=== PATIENT | female | born 1940 | race Two or more races ===

== ENCOUNTER 2019-05-01 08:24 | Emergency (ER) | payer MEDICARE, MEDICAID ==
[~2019-05-01] VITALS: Ht 149.9 cm; Wt 50.0 kg
[~2019-05-01 08:24] MED LIST: ALEVE220 M1 PO; CRESTOR5 MG PO; EQ ASPIRIN325 MG PO; LISINOPRIL20 MG OR; LOPRESSOR50 MG OR; MEDDOSEPAK OR; NAPROSYN500 MG PO; NORVASC10 MG OR
[2019-05-01] MEDS ORDERED: PERCOCET 5/321 COMBO PO (10:13)
[2019-05-01 10:24] VITALS: BP 126/77
[2019-05-01] MEDS ORDERED: PERCOCET 5/325M1 TAB PO (14:00)
== END 2019-05-01 10:36 | disposition home or self-care (01) ==
LOC: ED 08:24
PROC: 2W3CX1Z Immobilization of Right Lower Arm using Splint (ICD-10-PCS; principal; 2019-05-01)
DX: S52.531A Colles' fracture of right radius, initial encounter for closed fracture (principal); S80.11XA Contusion of right lower leg, initial encounter; S00.83XA Contusion of other part of head, initial encounter; W11.XXXA Fall on and from ladder, initial encounter; Y92.009 Unspecified place in unspecified non-institutional (private) residence as the place of occurrence of the external cause

== ENCOUNTER 2019-10-28 11:37 | Inpatient (IN) | payer MEDICARE ==
[~2019-10-28] VITALS: Ht 149.9 cm; Wt 48.4 kg
[~2019-10-28 11:37] MED LIST changes: +PERCOCET 5/321 COMBO PO; +PERCOCET 5/325M1 TAB PO
--- NOTE | 2019-10-28 12:00 | NUR ---
PT AMB TO ROOM IN NO DISTRESS
[2019-10-28] MEDS ORDERED: ARNUITY EL50 MCG/ACT (12:12)
[2019-10-28] MEDS ORDERED: PROAIR DIG108 MCG/AC IN (12:13)
[2019-10-28] MEDS ORDERED: ASPIRIN ADULT325 MG PO (12:14)
[2019-10-28] MEDS ORDERED: FLOVENT HF220 MCG/AC IN (12:14)
[2019-10-28] MEDS ORDERED: LISINOP/HCTZ1 TA1 PO (12:15)
[2019-10-28] MEDS ORDERED: AMLODIPINE BESY10 MG PO (12:15)
[2019-10-28] MEDS ORDERED: METOPROLOL SUCC50 MG PO (12:16)
[2019-10-28] MEDS ORDERED: ROSUVASTATIN CA10 MG PO (12:17)
[2019-10-28] MEDS ORDERED: HEARTBURN RELIE20 MG PO (12:17)
[2019-10-28] MEDS ORDERED: SINGULAIR10 MG PO (12:18)
[2019-10-28 12:38] LABS: HEMATOCRIT 41.9 % (37.0-47.0); HEMOGLOBIN 13.8 g/dl (12.0-16.0); IMMATURE GRANULOCYTES 0.5 % (0.0-5.0); MEAN CELL VOLUME 87.1 fL CALC (80.0-100.0); MEAN CORPUSCULAR HGB 28.7 pG CALC (26.0-32.0); MEAN CORPUSCULAR HGB CONC 32.9 g/L CALC (32.0-36.0); NEUT# 14.45 thou/uL (2.00-7.15); RED BLOOD COUNT 4.81 mill/uL (4.20-5.60); RED CELL DISTRI WIDTH 12.7 % (11.5-15.5)
--- NOTE | 2019-10-28 12:50 | NUR ---
PT RESTING ON STRETCHER; COUGH NOTED; PT NOFIED OF POC AND NEED FOR SPUTUM CULTURE; O2 NC APPLIED PER ABG RESULTS; PT TOLERATING WELL; VSS; CALL LIGHT WITHIN REACH; WILL CONTINUE TO MONITOR
[2019-10-28 12:58] LABS: ALBUMIN 4.6 g/dL (3.2-5.0); ALKALINE PHOSPHATASE 107 u/l (38-126); ANION GAP 16 (6-22 (CALC)); BUN 19 mg/dL (8-23); BUN/CREATININE RATIO 26 (12-20 (CALC)); CARBON DIOXIDE 26 mmol/l (22-30); CHLORIDE 97 mmol/l (95-108); CREATININE 0.7 mg/dL (0.5-1.0); GFR > 60 ML/MIN (>=60 (CALC)); GFR FOR AFR.AMER. > 60 ML/MIN (>=60 (CALC)); POTASSIUM 3.2 mmol/l (3.5-5.1); SGOT/AST 30 u/l (9-36); SODIUM 136 mmol/l (137-146); TOTAL PROTEIN 8.7 g/dL (6.3-8.2)
[2019-10-28 12:59] LABS: BILIRUBIN, TOTAL 0.6 mg/dL (0.0-1.4)
--- NOTE | 2019-10-28 13:30 | NUR ---
PT RESTING ON STRETCHER; NO S/S OF DISTRESS NOTED; VSS; DENIES ANY NEEDS AT THIS TIME; CALL LIGHT WITHIN REACH; WILL CONTINUE TO MONITOR
[2019-10-28 17:10] VITALS: BP 120/54
--- NOTE | 2019-10-28 17:10 | NUR ---
PT HAD COME VIA STRETCHER BY JANET. PT AMBULATED PT SCALE. ASSESSMENT DONE. TELE IN PLACE. PT IS A&O X3. PT DENIES PAIN AT THIS TIME. 20 LAC THAT APPEARS HEALTHY. PT IN ROOM. 02 2L VIA VT. SAFETY PRECAUTIONS REINFORCED AND CALL LIGHT IN REACH.
[2019-10-28 20:05] VITALS: BP 114/51
--- NOTE | 2019-10-28 20:15 | NUR ---
ASSESSMENT COMPLETED. DENIES NEEDS/PAIN. PO FLUIDS OFFERED. IV SITE PATENT AND SL. UPDATED ON POC. O2 INFUSING PER NC PER ORDER. ENCOURAGD TO CALL FOR ANY NEEDS. SPECIMEN CUP PROVIDED AND INSTRUCTED OF NEED FOR SPUTUM AND VERBALIZES UNDERSTANDING.
--- NOTE | 2019-10-28 21:00 | NUR ---
SCHED MEDS GIVEN. PT. PROVIDED SPUTUM SAMPLE WILL SEND TO LAB. PO FLUIDS OFFERED. DENIES NEEDS. CALL LIGHT IS IN REACH.
[2019-10-28 23:46] VITALS: BP 109/53
--- NOTE | 2019-10-29 00:10 | NUR ---
PT. AMBULATING FROM THE BATHROOM BACK TO BED. VOICES NO CONCERNS. PROVIDED AND EDUCATED ON INCENTIVE SPIROMETER. PT. PULLING 500 AND GOAL SET TO 750. RE-PLACED MEASURING DEVICE IN TOILET AND INSTRUCTED PT. ON NEEDS FOR ACCURATE INTAKE AND OUTPUT AND VERBALIZES UNDERSTANDING. ENCOURAGED TO CALL FOR ANY NEEDS. CALL LIGHT IS IN REACH. JUICE PROVIDED.
--- NOTE | 2019-10-29 02:25 | NUR ---
RESTING IN BED WITH EYES CLOSED; RESP. EVEN AND UNLABORED. CALL LIGHT IS IN REACH.
[2019-10-29 03:55] VITALS: BP 115/58
[2019-10-29 05:23] LABS: HEMATOCRIT 41.5 % (37.0-47.0); HEMOGLOBIN 13.7 g/dl (12.0-16.0); IMMATURE GRANULOCYTES 0.8 % (0.0-5.0); MEAN CELL VOLUME 87.4 fL CALC (80.0-100.0); MEAN CORPUSCULAR HGB 28.8 pG CALC (26.0-32.0); NEUT# 10.38 thou/uL (2.00-7.15); RED BLOOD COUNT 4.75 mill/uL (4.20-5.60); RED CELL DISTRI WIDTH 12.4 % (11.5-15.5)
[2019-10-29 05:42] LABS: ANION GAP 16 (6-22 (CALC)); BUN 24 mg/dL (8-23); BUN/CREATININE RATIO 33 (12-20 (CALC)); CARBON DIOXIDE 28 mmol/l (22-30); CHLORIDE 97 mmol/l (95-108); CREATININE 0.7 mg/dL (0.5-1.0); GFR > 60 ML/MIN (>=60 (CALC)); GFR FOR AFR.AMER. > 60 ML/MIN (>=60 (CALC)); POTASSIUM 3.3 mmol/l (3.5-5.1); SODIUM 138 mmol/l (137-146)
--- NOTE | 2019-10-29 05:47 | NUR ---
SNACK PROVIDED PER PT'S REQUEST. FRESH WATER GIVEN. URINE EMPTIED. CALL LIGHT IS IN REACH.
[2019-10-29 08:00] VITALS: BP 120/61
[2019-10-29] MEDS ORDERED: SINGULAIR10 MG PO (10:58)
[2019-10-29 12:38] LABS: CHOLESTEROL HDL RATIO 3.1 (<4.4 (CALC)); MAGNESIUM 2.5 mg/dL (1.6-2.3)
[2019-10-29 16:36] VITALS: BP 108/62
--- NOTE | 2019-10-29 17:26 | NUR ---
PATIENT IN AFIB. AIRPLANE PILOT CROP DUSTING AWARE AND MEDICATIONS ORDERED. ASYMPTOMATIC AT THIS TIME. NEW ORDERS FOR IV ANTIBIOTICS. PATIENT ADVISED OF NEW MEDICATIONS ORDERED AND SIDE EFFECTS. DENIES PAIN. WILL CONTINUE TO MONITOR.
[2019-10-29 19:08] VITALS: BP 98/60
--- NOTE | 2019-10-29 19:10 | NUR ---
CALLED AND SPOKE WITH ER ELASTIC ASSEMBLER AND NOTIFIED THEM TO NOTIFY FLOOR IF PT'S HR SUSTAINS 120'S AND/OR FOR RHYTHYM CHANGE PER MD'S REQUEST. VERBALIZES UNDERSTANDING. HR AT THIS TIME AFIB 112 AND B/P MANUALLY 98/60, NOTIFIED BRENDA MILLS OF THIS AND NEW ORDERS RECEIVED.
--- NOTE | 2019-10-29 19:40 | NUR ---
250ML BOLUS STARTED PER ORDER AND THEN MAINTENANCE FLUIDS TO START AT 100MLS/HR. ASSESSMENT COMPLETED. WILL REASSESS B/P AFTER BOLUS. ENCOURAGED USE OF INCENTIVE SPIROMETER AND O2 IN PLACE. ENCOURAGED TO CALL FOR ANY NEEDS. CALL LIGHT IS IN REACH. WILL CONTINUE TO MONITOR.
[2019-10-29 21:02] VITALS: BP 101/68
--- NOTE | 2019-10-29 21:02 | NUR ---
REASSESSED B/P AND NOW 101/68 AND HR 102; WILL HOLD LOPRESSOR AND REASSESS.
--- NOTE | 2019-10-29 22:14 | NUR ---
REASSESSED B/P AND NOW 103/70 AND HR 82; HELD LOPRESSOR PER ORDER. PT. DENIES NEEDS. CALL LIGHT IS IN REACH.
[2019-10-29 23:33] VITALS: BP 98/67
--- NOTE | 2019-10-29 23:33 | NUR ---
PT. RESTING IN BED WITH NO DISTRESS NOTED; DENIES NEEDS/PAIN. VSS. ENCOURAGED TO CALL FOR ANY NEEDS. CALL LIGHT IS IN REACH.
[2019-10-30] VITALS (8 sets, daily range): BP systolic 98–134; BP diastolic 42–67
--- NOTE | 2019-10-30 02:02 | NUR ---
[phone] RECEIVED PHONE CALL FROM [facility] AND REPORTS THAT HR IS 120-130'S. PT. UP IN THE ROOM AMBULATING FROM THE BATHROOM BACK TO BED. PT. HAS 02 OFF, RE-APPLIED O2 AT THIS TIME AND RT CALLED FOR ISHAN TXTre SPOKE WITH [employer] AND NOTIFIED HER TO CALL BACK THIS TRACK LAYING EQUIPMENT OPERATOR IF HR SUSTAINS.
--- NOTE | 2019-10-30 02:56 | NUR ---
PT. C/O OTERO AND MEDICATED WITH ONE TIME DOSE OF TYLENOL AND SNACK PROVIDED. DENIES FURTHER NEEDS.
--- NOTE | 2019-10-30 04:05 | NUR ---
PER ER DONOR RELATIONS OFFICER PT. APPEARS TO HAVE CONVERTED TO SR WITH TRIGEMENY. CALLED RT FOR EKG.
--- NOTE | 2019-10-30 04:16 | NUR ---
EKG COMPLETED AND PER RT. PT. NOW SR WITH MULTIPLE PAC'S.
--- NOTE | 2019-10-30 06:10 | NUR ---
PT. SITTING UP IN BED WITH EYES CLOSED; O2 INFUSING PER NC PER ORDER. NO DISTRESS NOTED. CALL LIGHT IS IN REACH.
--- NOTE | 2019-10-30 08:05 | NUR ---
ASSESSMENT IS COMPLETED: IV SITE IS FREE FROM REDNESS OR EDEMA. HR IS REG,PULSES ARE STRONG X4,ABD IS SOFT WITH ACTIVE BS. BREATH SOUNDS ARE CLEAR,BILATERALLY, NO C/O SOB. TELE MONITOR IN PLACE CONTINU ETO OBSERVE AND MONITOR.
--- NOTE | 2019-10-30 09:23 | NUR ---
called office regarding this pt. spoke to mehdi gave information on pt was told she will notify the doctor regarding this consultation.
--- NOTE | 2019-10-30 11:45 | NUR ---
DID THE WALK TEST WITH OUT O2 IS 94% WHILE WALKING DROPPED TO 86% REPLACED ON O2 92%
[2019-10-30 11:56] LABS: ANION GAP 15 (6-22 (CALC)); BUN 26 mg/dL (8-23); BUN/CREATININE RATIO 40 (12-20 (CALC)); CARBON DIOXIDE 23 mmol/l (22-30); CHLORIDE 107 mmol/l (95-108); CREATININE 0.7 mg/dL (0.5-1.0); GFR > 60 ML/MIN (>=60 (CALC)); GFR FOR AFR.AMER. > 60 ML/MIN (>=60 (CALC)); SODIUM 141 mmol/l (137-146)
[2019-10-30 11:57] LABS: POTASSIUM 4.1 mmol/l (3.5-5.1)
--- NOTE | 2019-10-30 12:30 | NUR ---
PT IS RELAXING IN BED WITH NO DISTRESS NOTED. IV SITE IS FREE FROM REDNESS OR EDEMA. FAMILY IN THE ROOM. CONTINUE TO OSBERVE AND MONITOR.
[2019-10-30] MEDS ORDERED: FLECAINIDE50 MG PO (13:41)
--- NOTE | 2019-10-30 16:30 | NUR ---
PT IS RELAXING IN BED WITH NO DISTRESS NOTED. IV SITE BECAME PUFFY AND A NEW ONE PLACED BY Marin MENCHACA RN IN RAC 22. CONITNUE TO OSBERVE AND MONITOR. FAMILY REMAINS IN THE ROOM.
--- NOTE | 2019-10-30 20:50 | NUR ---
PT MEDICATED ORDERS PROVIDE AND ASSESSMENT COMPLETED AT THIS TIME. PT REPORTS FEELING SOMEWHAT BETTER. UPPER LUNG WHEEZE AUSCULTATED. PT ASKING FOR OJ/PROVIDED. DENIES ANY OTHER NEEDS AT THIS TIME. CALL LIGHT W/IN REACH AND PT ENCOURAGED TO CALL NEEDS ARISE.
--- NOTE | 2019-10-30 21:49 | NUR ---
Patient refused a bath at this time 21:50. Patient is wanting to wash up in the morning.
--- NOTE | 2019-10-31 00:10 | NUR ---
PT CALLED TO REQUEST RESTROOM DOOR BE CLOSED. DENIES ANY OTHER NEEDS AT THIS TIME. NO S/O DISTRESS NOTED. CALL LIGHT IS W/IN REACH.
[2019-10-31 03:42] VITALS: BP 130/68
--- NOTE | 2019-10-31 03:46 | NUR ---
IV SITE IN LAC REMOVED/SITE WAS SL AND APPEARED REDDENED. PT DENIES PAIN AT SITE. PT C/O "UPSET STOMACH." EMESIS BAG PROVIDED, SHE ASKED FOR CRACKERS AND SPRITE/PROVIDED AT THIS TIME. DENIES ANY OTHER NEEDS. AIDE IS IN W/PT OBTAINING DAILY WEIGHT.
[2019-10-31 04:57] LABS: HEMATOCRIT 37.3 % (37.0-47.0); IMMATURE GRANULOCYTES 4.1 % (0.0-5.0); MEAN CELL VOLUME 92.1 fL CALC (80.0-100.0); MEAN CORPUSCULAR HGB 28.6 pG CALC (26.0-32.0); MEAN CORPUSCULAR HGB CONC 31.1 g/L CALC (32.0-36.0); NEUT# 10.3 thou/uL (2.00-7.15); RED BLOOD COUNT 4.05 mill/uL (4.20-5.60); RED CELL DISTRI WIDTH 13.1 % (11.5-15.5)
[2019-10-31 05:08] LABS: HEMOGLOBIN 11.6 g/dl (12.0-16.0)
[2019-10-31 05:13] LABS: ANION GAP 14 (6-22 (CALC)); BUN 21 mg/dL (8-23); BUN/CREATININE RATIO 33 (12-20 (CALC)); CARBON DIOXIDE 22 mmol/l (22-30); CHLORIDE 109 mmol/l (95-108); CREATININE 0.6 mg/dL (0.5-1.0); GFR > 60 ML/MIN (>=60 (CALC)); GFR FOR AFR.AMER. > 60 ML/MIN (>=60 (CALC)); POTASSIUM 4.1 mmol/l (3.5-5.1); SODIUM 141 mmol/l (137-146)
--- NOTE | 2019-10-31 05:17 | NUR ---
patient was asked if she wanted to wash up at this time 0342. patient refused.
--- NOTE | 2019-10-31 07:00 | NUR ---
REPORT FROM ZURI SIERRA. PT RESTING IN BED WITH EYES CLOSED. WAKES EASILY. DENIES ANY PAIN OR DISCOMFORT. NO APPARENT DISTRESS NOTED. WOOD TREATING INSPECTOR IN PLACE. IVF INFUSING WITHOUT DIFFICULTY. O2 @ 2L/M VIA NC. DISCUSSED POC. PT VERBALIZED UNDERSTANDING. PT REQUESTING SHOWER AFTER BREAKFAST. CALL LIGHT WITHIN REACH. WILL CONTINUE TO MONITOR.
[2019-10-31 08:04] VITALS: BP 134/73
--- NOTE | 2019-10-31 09:04 | NUR ---
PT UP TO SHOWER, DISCONNECTED FROM IV FLUIDS AND TELEMETRY AT THIS TIME.
[2019-10-31 10:50] VITALS: BP 104/58
[2019-10-31] MEDS ORDERED: ELIQUIS5 MG PO (11:41)
[2019-10-31] MEDS ORDERED: PREDNISONE10 MG PO (11:43)
[2019-10-31] MEDS ORDERED: LEVAQUIN750 MG PO (11:44)
[2019-10-31] MEDS ORDERED: ASPIRIN ADULT L81 M2 PO (11:49)
--- NOTE | 2019-10-31 12:32 | NUR ---
PT RESTING IN BED, ENVIRONMENTAL SERVICES TECHNICIAN DISCUSSED DISCHARGE PLAN. [facility] DELIVERED TO ROOM. WILL CONTINUE TO MONITOR.
--- NOTE | 2019-10-31 14:58 | NUR ---
Discharge instructions given. Patient verbalizes understanding of same. Discharged in stable condition via Wheelchair to Home with family. All belongings sent with pt.
--- NOTE | 2019-10-31 15:01 | NUR ---
IV site discontinued, cath intact. No edema , no redness, voices no discomfort.
== END 2019-10-31 14:58 | disposition home or self-care (01) | DRG 193 ==
LOC: ED 11:37 → ED-I 14:21 → ED 15:17 → MS2 15:18
PROVIDERS: Nurse Practitioner Family; ADMIT Internal Medicine; ATTEND Internal Medicine
DX: J18.9 Pneumonia, unspecified organism (principal); J96.01 Acute respiratory failure with hypoxia; J45.901 Unspecified asthma with (acute) exacerbation; I10 Essential (primary) hypertension; I48.0 Paroxysmal atrial fibrillation; I45.10 Unspecified right bundle-branch block; E78.5 Hyperlipidemia, unspecified; I25.10 Atherosclerotic heart disease of native coronary artery without angina pectoris; E87.6 Hypokalemia; Z95.1 Presence of aortocoronary bypass graft; Z87.891 Personal history of nicotine dependence
CPT/HCPCS: G0378; J0282; J1650

== ENCOUNTER 2021-02-13 17:09 | Emergency (ER) | payer MEDICARE, MEDICAID ==
[~2021-02-13] VITALS: Ht 149.9 cm; Wt 70.0 kg
[~2021-02-13 17:09] MED LIST changes: +AMLODIPINE BESY10 MG PO; +ARNUITY EL50 MCG/ACT; +ASPIRIN ADULT L81 M2 PO; +ASPIRIN ADULT325 MG PO; +ELIQUIS5 MG PO; +FLECAINIDE50 MG PO; +FLONASE AL50 MCG/ACT IN; +FLOVENT HF220 MCG/AC IN; +HEARTBURN RELIE20 MG PO; +LEVAQUIN750 MG PO; +LISINOP/HCTZ1 TA1 PO; +METOPROLOL SUCC50 MG PO; +PREDNISONE10 MG PO; +PROAIR DIG108 MCG/AC IN; +ROSUVASTATIN CA10 MG PO; +SINGULAIR10 MG PO; +TRIAMCINOLONE A0.12 EX
[2021-02-13] MEDS ORDERED: ULTRAM50 MG PO (18:44)
[2021-02-13 18:57] VITALS: BP 159/81
== END 2021-02-13 18:57 | disposition home or self-care (01) ==
LOC: ED 17:09
DX: S63.501A Unspecified sprain of right wrist, initial encounter (principal); S63.91XA Sprain of unspecified part of right wrist and hand, initial encounter; I10 Essential (primary) hypertension; J45.909 Unspecified asthma, uncomplicated; W54.1XXA Struck by dog, initial encounter; Y93.K1 Activity, walking an animal; Z95.1 Presence of aortocoronary bypass graft

== ENCOUNTER 2021-03-22 | Emergency (ER) | payer MEDICARE, MEDICAID ==
[~2021-03-22] MED LIST changes: +ULTRAM50 MG PO
[2021-03-22] MEDS ORDERED: MONTELUKAST SOD10 MG PO (20:53)
[2021-03-22] MEDS ORDERED: LOPRESSOR 550 MG/TAB PO (20:53)
[2021-03-22] MEDS ORDERED: AMLODIPINE BESYL5 MG PO (20:53)
[2021-03-22] MEDS ORDERED: ROSUVASTATIN CA10 MG PO (20:53)
== END 2021-03-22 21:00 | disposition home or self-care (01) ==
PROC: 3E1B78Z Irrigation of Ear using Irrigating Substance, Via Natural or Artificial Opening (ICD-10-PCS; principal; 2021-03-22)
DX: H61.21 Impacted cerumen, right ear (principal); I10 Essential (primary) hypertension; J45.909 Unspecified asthma, uncomplicated; I48.91 Unspecified atrial fibrillation; Z95.1 Presence of aortocoronary bypass graft

== ENCOUNTER 2021-04-27 09:14 | Inpatient (IN) | payer MEDICARE, MEDICAID ==
[~2021-04-27] VITALS: Ht 149.9 cm; Wt 56.0 kg
[~2021-04-27 09:14] MED LIST changes: +AMLODIPINE BESYL5 MG PO; +LOPRESSOR 550 MG/TAB PO; +MONTELUKAST SOD10 MG PO
--- NOTE | 2021-04-27 09:18 | NUR ---
to room for triage
[2021-04-27] MEDS ORDERED: FLECAINIDE50 MG PO (09:32)
[2021-04-27] MEDS ORDERED: MONTELUKAST SOD10 MG PO (09:32)
[2021-04-27] MEDS ORDERED: ELIQUIS5 MG PO (09:33)
[2021-04-27] MEDS ORDERED: BUPROPION HCL150 MG PO (09:33)
[2021-04-27] MEDS ORDERED: FLOVENT HF220 MCG/AC (09:34)
[2021-04-27 10:29] LABS: HEMATOCRIT 43.8 % (37.0-47.0); HEMOGLOBIN 13.9 g/dl (12.0-16.0); IMMATURE GRANULOCYTES 0.7 % (0.0-5.0); MEAN CELL VOLUME 90.9 fL CALC (80.0-100.0); MEAN CORPUSCULAR HGB 28.8 pG CALC (26.0-32.0); MEAN CORPUSCULAR HGB CONC 31.7 g/dL CAL (32.0-36.0); NEUT# 18.33 thou/uL (2.00-7.15); RED BLOOD COUNT 4.82 mill/uL (4.20-5.60); RED CELL DISTRI WIDTH 13.2 % (11.5-15.5)
[2021-04-27 10:53] LABS: ALBUMIN 4.1 g/dL (3.2-5.0); ALKALINE PHOSPHATASE 113 u/l (38-126); ANION GAP 15 (6-22 (CALC)); BUN 14 mg/dL (8-23); BUN/CREATININE RATIO 23 (12-20 (CALC)); CARBON DIOXIDE 24 mmol/l (22-30); CHLORIDE 99 mmol/l (95-108); CREATININE 0.6 mg/dL (0.5-1.0); GFR > 60 ML/MIN (>=60 (CALC)); GFR FOR AFR.AMER. > 60 ML/MIN (>=60 (CALC)); POTASSIUM 3.5 mmol/l (3.5-5.1); SGOT/AST 25 u/l (9-36); SODIUM 134 mmol/l (137-146); TOTAL PROTEIN 8.2 g/dL (6.3-8.2)
[2021-04-27 10:55] LABS: BILIRUBIN, TOTAL 0.8 mg/dL (0.0-1.4)
[2021-04-27 11:05] LABS: MYOGLOBIN 33 ng/mL (0 - 62)
[2021-04-27] MEDS ORDERED: ASPIRIN81 MG PO (12:30)
[2021-04-27 14:30] VITALS: BP 154/73
--- NOTE | 2021-04-27 15:03 | NUR ---
PT ARRIVES TO ROOM 277,SEEN ALERT AND ORIENTED X 3, ACCOMPANIED BY HER DAUGHTER REDDY AND ANIL RN. PT IS ALERT AND ORIENTED X 3. LUNGS ARE CLEAR, PLACED ON 2 LPM NC. PT WITH OCCASIONAL COUGH, CLEARS WITHOUT DIFFICULTY.
[2021-04-27 19:50] VITALS: BP 163/77
--- NOTE | 2021-04-27 20:00 | NUR ---
RECEIVED REPORT FROM NURSE LAND PATIENT RESTING IN BED, WATCHING TV, ASKING ABOUT HER HOME MEDICATIONS THAT SHE TAKES AT HOME, WILL NOTIFY AGRONOMY INSTRUCTOR MD, WITH SALINE LOCK ON RAC G20 PATENT FLUSHES WELL, LBM 04/25, HOOKED TO O2 2 2LPM, PRODUCTIVE COUGH YELLOW IN COLOR THICK SECRETION, DIMINISHED LUNG SOUNDS, DENIES PAIN AT THIS TIME, BREATHING SHALLOW, UNLABORED, CALL LIGHT AT REACH.
--- NOTE | 2021-04-27 20:05 | NUR ---
DR DANG MADE AWARE ABOUT PATIENT REQUEST TO RESTART HOME MEDICATION.
[2021-04-28] VITALS: BP 149/76
--- NOTE | 2021-04-28 00:03 | NUR ---
PATIENT C/O THAT SHE IS SHORT OF BREATH, POX AT 96% ON ROOM AIR, RT CALLED FOR BREATHING TREATMENT
[2021-04-28 04:00] VITALS: BP 147/70
--- NOTE | 2021-04-28 04:16 | NUR ---
PATIENT AWAKE AT THIS TIME, ASSISTED TO THE BATHROOM, ASSISTED BACK IN BED, URINE SPECIMEN COLLECTED, PATIENT REQUESTED PRUNE JUICE LAST BM 04/25, REFUSED TO TAKE LAXATIVE AT THIS TIME, CALL LIGHT AT REACH.
[2021-04-28 05:46] LABS: URINE BILIRUBIN - DIPSTICK SMALL (NEGATIVE); URINE BLOOD DIPSTICK SMALL (NEGATIVE); URINE COLOR YELLOW; URINE GLUCOSE - DIPSTICK NEGATIVE (NEGATIVE); URINE KETONE 40 mg/dL (NEGATIVE); URINE NITRITE - DIPSTICK NEGATIVE (Negative); URINE PROTEIN - DIPSTICK 30 mg/dL (NEG-TRACE); URINE SPECIFIC GRAVITY >=1.030; URINE UROBILINOGEN - DIPSTICK >=8.0 E.U./dL (0.2)
[2021-04-28 05:47] LABS: URINE BACTERIA FEW hpf; URINE EPITHELIAL CELLS FEW EPI/hpf (0-FEW); URINE LEUK ESTERASE NEGATIVE (NEGATIVE); URINE MUCUS FEW hpf (NONE-FEW)
--- NOTE | 2021-04-28 07:00 | NUR ---
PT REPORT RECEIVED FROM NIGHT NURSESHAWN
[2021-04-28 07:39] VITALS: BP 133/68
--- NOTE | 2021-04-28 08:00 | NUR ---
PT WAS FOUND RESTING IN BED IN SEMI-FOWLERS POSITION;PT IS A&OX3;VS AND ASSESSMENT WERE COMPLETED;PT HAS NO REPORTS OF PAIN AT THIS TIME;HEART SOUNDS ARE REGULAR IN RATE AND RHYTHM;TELE IS IN PLACE;LUNG SOUNDS ARE DIMINISHED IN ALL LOBES;RESPIRATIONS ARE EVEN AND UNLABORED ON O2@2L VIA NC;NON-PRODUCTIVE COUGH NOTED;#20G IV IN RAC IS SL, PATENT AND FREE OF COMPLICATIONS AT THIS TIME;PT HAS MAURA HOSE ON AT THIS TIME;SAFETY PRECAUTIONS IN PLACE;CALL LIGHT WITHIN REACH;BED IN LOWEST POSITION;PT ENCOURAGED TO CALL WITH ANY NEEDS OR CONCERNS;WILL CONTINUE TO MONITOR.
[2021-04-28 11:10] VITALS: BP 111/65
--- NOTE | 2021-04-28 12:00 | NUR ---
PT WAS FOUND SITTING UP IN BED EATING LUNCH;PT IS REPORTING NO PAIN AT THIS TIME;TELE IS IN PLACE;O2@2L VIA NC IS IN PLACE;SAFETY PRECAUTIONS IN PLACE;CALL LIGHT WITHIN REACH;WILL CONTINUE TO MONITOR.
[2021-04-28 15:00] VITALS: BP 145/78
--- NOTE | 2021-04-28 16:00 | NUR ---
PT WAS FOUND RELAXING IN BED WATCHING TV;PT DAUGHTER JUST LEFT AFTER VISITING;PT HAS NO REPORTS OF PAIN AT THIS TIME;TELE IS IN PLACE;#20G IV IN RAC IS SL, PATENT AND APPEARS FREE OF COMPLICATIONS AT THIS TIME;SAFETY PRECAUTIONS IN PLACE;CALL LIGHT WITHIN REACH;BED IN LOWEST POSITION;WILL CONTINUE TO MONITOR.
[2021-04-28 19:03] VITALS: BP 144/75
--- NOTE | 2021-04-28 19:04 | NUR ---
REPORT FROM ARTURO SIERRA. ASSUMED PT CARE.
--- NOTE | 2021-04-28 19:18 | NUR ---
PT NOTED SITTING UP IN BED WATCHING TV. ALERT AND ORIENTED. NO APPARENT DISTRESS NOTED. RESPIRATIONS EVEN AND UNLABORED. O2 @ 2L/M VIA NC. PT DENIES ANY PAIN OR DISCOMFORT. NO CURRENT WANTS OR NEEDS VOICED AT THIS TIME. DISCUSSED POC. PT VERBALIZED UNDERSTANDING. IV SITE APPEARS HEALTHY. PLANT WORKER IN PLACE. CALL LIGHT WITHIN REACH. WILL CONTINUE TO MONITOR.
--- NOTE | 2021-04-28 23:27 | NUR ---
PT RESTING IN BED WITH EYES CLOSED. NO APPARENT DISTRESS NOTED. RESPIRATIONS EVEN AND UNLABORED. 02 @ 2L/M VIA NC. CALL LIGHT WITHIN REACH. WILL CONTINUE TO MONITOR.
[2021-04-29] VITALS (16 sets, daily range): BP systolic 110–151; BP diastolic 43–79
--- NOTE | 2021-04-29 00:21 | NUR ---
FAMILY MEMBER CALLED WITH CONCERNS PT CALLING THEM STATING THINGS SUCH THE POLICE ARE HERE AND SHE IS BEING ROBBED. UPON ENTERING ROOM PT ALERT AND ORIENTED X2. PT ABLE TO STATE NAME AND MONTH AND WHERE SHE IS. REORIENTED TO TIME OF NIGHT AND SITUATION. ENCOURAGED PT TO KEEP OXYGEN ON AND TO GET SOME REST. PT VERBALIZED UNDERSTANDING. CALL LIGHT WITHIN REACH. WILL CONTINUE TO MONITOR.
--- NOTE | 2021-04-29 02:15 | NUR ---
PT FOUND WALKING DOWN DENNIS. PT CONTINUES TO BE ALERT AND ORIENTED WITH CONFUSION AND HAVING HALLUCINATIONS. PT REORIENTED TO TIME AND SITUATION. PUPILS EQUAL AND REACTIVE. SAUSAGE COOKER STRONG. ASSISTED PT BACK INTO BED. O2 PLACED BACK ON PT. EDUCATION PROVIDED ON SAFETY. BED ALARM SET AT THIS TIME. CALL LIGHT WITHIN REACH. WILL CONTINUE TO MONITOR.
--- NOTE | 2021-04-29 03:55 | NUR ---
ER NOTIFIED PT HR SUSTAINING IN 140S. RHYTHM CHANGE NOTED.
--- NOTE | 2021-04-29 03:57 | NUR ---
EKG OBTAINED BY RT.
--- NOTE | 2021-04-29 04:18 | NUR ---
PT HR SUSTAINING IN 130-140S. NOTIFIED AGRICULTURAL SCIENCE PROFESSOR PHYSICIAN DR DANG. ORDERS RECEIVED AT THIS TIME. GIVE CARDIZEM 5MG IVP X1 WAIT 5 MINUTES IF HR DOES NOT SLOW DOWN BELOW 120 GIVE ANOTHER DOSE CARDIZEM 5MG IVP IF NO IMPROVEMENT TRANSFER TO ICU. SWEATBAND FLANGER NOTIFIED.
--- NOTE | 2021-04-29 04:30 | NUR ---
PHARMACY CALLED [facility] DOWN PER PHARMACY MEDICATION WILL HAVE TO BE OVERROAD TO ADMINISTER THEY DO NOT HAVE ACCESS EITHER. MEDICAL RECORDS CUSTODIAN NOTIFIED.
--- NOTE | 2021-04-29 04:46 | NUR ---
DILTIAZEM 5MG IP PUSH GIVEN @ 04.45
--- NOTE | 2021-04-29 04:51 | NUR ---
SECOND DOSE OF DILTIAZEM 5MG IV PUSH GIVEN HEART RATE STAYED IN THE 120'S-130'S
--- NOTE | 2021-04-29 05:10 | NUR ---
TO ICU VIA BED. ALERT. SPEECH CLEAR BUT SOMEWHAT CONFUSED. KNOWS SHE IS IN HOSPITAL AND HEART TOO FAST BUT WANTS DAUGHTER CALLED BECAUSE FAMILY FLYING AWAY.... TO ICU HEART RATE 120'S AND NOT RESPONSIVE TO CARDIZEM IVP. PT DENIES CHEST PAIN, PALPATIONS OR FEELING ANY DIFFERENTLY. OXYGENT AT 2L VIA N/C. NO COUGH OR RESP DISTRESS NOTED NOTED
--- NOTE | 2021-04-29 05:19 | NUR ---
NOTIFIED DAUGHTER PT WAS TRANFERED TO ICU.
--- NOTE | 2021-04-29 05:27 | NUR ---
PCXR DONE AT THIS TIME
--- NOTE | 2021-04-29 06:19 | NUR ---
RESTING BEFORE BREAKFAST COMES. DENIES PAIN OR DISTRESS. ON MONITOR AND HEART RATE 120'S
--- NOTE | 2021-04-29 06:47 | NUR ---
AM DOSE OF LOPRESSOR GIVEN HEART RATE CONTINUES TO CLIMB. SITTING ON SIDE OF BED. TO BSC WITH STANDBY ASSIST-TOLERATEDWELL
--- NOTE | 2021-04-29 07:16 | NUR ---
PATIENT RECIEVED FROM NIGHT NURSE.
--- NOTE | 2021-04-29 08:00 | NUR ---
PATIENT ASSESSED, ALERT WITH CONFUSION. VITALS ARE STABLE. HEART RATE IN 80'S.
[2021-04-29 08:27] LABS: HEMATOCRIT 42.2 % (37.0-47.0); HEMOGLOBIN 13.4 g/dl (12.0-16.0); IMMATURE GRANULOCYTES 0.5 % (0.0-5.0); MEAN CELL VOLUME 91.1 fL CALC (80.0-100.0); MEAN CORPUSCULAR HGB 28.9 pG CALC (26.0-32.0); MEAN CORPUSCULAR HGB CONC 31.8 g/dL CAL (32.0-36.0); NEUT# 12.38 thou/uL (2.00-7.15); RED BLOOD COUNT 4.63 mill/uL (4.20-5.60); RED CELL DISTRI WIDTH 13.2 % (11.5-15.5)
--- NOTE | 2021-04-29 08:30 | NUR ---
SPOKE TO REDDY THE DAUGHTER AND ALSO JOSE HER SETP DAUGHTER. BOTH HAD THE CODE. GAVE BOTH DAUGHTERS AN UPDATE.
[2021-04-29 08:39] LABS: ANION GAP 12 (6-22 (CALC)); BUN 7 mg/dL (8-23); BUN/CREATININE RATIO 15 (12-20 (CALC)); CARBON DIOXIDE 27 mmol/l (22-30); CHLORIDE 101 mmol/l (95-108); CREATININE 0.5 mg/dL (0.5-1.0); GFR > 60 ML/MIN (>=60 (CALC)); GFR FOR AFR.AMER. > 60 ML/MIN (>=60 (CALC)); POTASSIUM 3.8 mmol/l (3.5-5.1); SODIUM 137 mmol/l (137-146)
--- NOTE | 2021-04-29 10:00 | NUR ---
PATIENT IS SITTING UP WATCHING TV.
--- NOTE | 2021-04-29 12:00 | NUR ---
PATIENT IS GETTING UP AND CALLING OUT FOR PEOPLE WHO ARE NOT HERE. REDIRECTED HER AND SHE IS BACK TO SITTING DOWN AND WATCHING TV FOR NOW.
--- NOTE | 2021-04-29 14:21 | NUR ---
PATIENT IS LAYING IN BED
--- NOTE | 2021-04-29 15:07 | NUR ---
CALLED FOR TRANSFER OVER TO [facility], NURSE STATED THAT THEY WILL CALL US BACK FOR A ROOM NUMBER.
--- NOTE | 2021-04-29 16:00 | NUR ---
PATIENT IS SITTING UP IN BED TRYING TO GET OUT OF BED. REMOVING HER CONNECTIONS FROM THE MONITOR.
--- NOTE | 2021-04-29 17:14 | NUR ---
PATIENT WILL REMAIN WITH US IN ICU. MEDSURG IS FULL ACCORDING TO THE MEDSURG NURSE.
--- NOTE | 2021-04-29 18:00 | NUR ---
PATIENT IS SITTING UP IN BED, UPSET ABOUT NOT BEING ABLE TO GO HOME. EDUCATION WAS GIVEN. SHE IS REFUSING TO EAT. IS DRINKING HER TEA.
--- NOTE | 2021-04-29 18:50 | NUR ---
REPORT RECEIVED FROM Mack LAKE RN, CARE OF PT ASSUMED AT THIS TIME.
--- NOTE | 2021-04-29 19:22 | NUR ---
Mahsa PARISI MERCHANDISING STOCK ASSOCIATE CALLS OUT FOR HELP, PT IS GRABBING ONTO MERCHANDISING STOCK ASSOCIATE TIGHTLY AND YELLING / ATTEMPTING TO PUSH HER. SHERRY MINAYA ANNOUNCED OVERHEAD. PT REDIRECTED BACK TO BED. PT IS AGITATED, YELLING THAT SHE IS BEING HELD PRISONER AND HER MOBILE PHONE HAS BEEN STOLEN. MOBILE PHONE IN BED WITH PT. PT'S ATTENTION DRAWN TO PHONE PT STATES "THEIR IT IS" GRABS PHONE AND BEGINS TO CALL FAMILY. PT STAYING IN BED WHILE ON PHONE WITH FAMILY. ACCUSES FAMILY OF ABANDONING HER.
--- NOTE | 2021-04-29 19:35 | NUR ---
PT'S AGITATION, CONFUSION AND PHYSICAL ATTACK ON EMPLOYEE REPORTED TO DR. CREWS. ORDERS FOR SEROQUEL AND PRN ATIVAN RECEIVED FOR AGITATION. ORDER FAXED TO PHARMACY.
--- NOTE | 2021-04-29 19:55 | NUR ---
CALLED AND SPOKE WITH PT'S DAUGHTER PAPA. UPDATE PROVIDED ON PT'S STATUS. DAUGHTER AWARE OF INCREASED CONFUSION. REPORTS PT CONTINUALLY CALLS AND IS AGITATED. DAUGHTER MADE AWARE OF PT'S INCREASED AGITATION IF PT'S IS SEPERATED FROM PHONE. DAUGHTER MADE AWARE CURRENT PLAN IS TO START ON SEROQUEL WITH ATIVAN PRN FOR AGITATION. DAUGHTER AGREEABLE.
--- NOTE | 2021-04-29 20:20 | NUR ---
PT CALMER. ASSISTED PT TO BATHROOM REQUESTED. PT BACK TO BED. AGREES TO TAKE PO MEDICATIONS AT THIS TIME. PO MEDICATIONS ADMINISTERED, SEE E-MAR. PHYSICAL ASSESMENT COMPLETE. SEE SHIFT ASSESMENT. PT DECLINES NEEDS WHEN ASKED. CALL SENIOR WITHIN REACH, AGREES TO CALL PRN.
--- NOTE | 2021-04-29 21:10 | NUR ---
PT JUMPS OUT OF BED AND ATTEMPTS TO RUN AWAY. GAIT UNBALANCED. PT GUIDED BACK TO BED. WILL SIT WITH PT AT BEDSIDE.
--- NOTE | 2021-04-29 21:20 | NUR ---
PT THROWS MOBILE PHONE AT WALL HARD. NO GROSS DAMAGE NOTED TO PHONE. PHONE PLACED ON BEDSIDE TABLE. PT DROWSY AND AWAKE.
--- NOTE | 2021-04-29 21:30 | NUR ---
PT APPEARS TO BE SLEEPING, RESTLESS AND YELLING OUT "NO TONY". NSR 80S ON MONITOR. SPO2 95%.
--- NOTE | 2021-04-29 21:40 | NUR ---
UPDATE ON PT'S STATUS PROVIDED TO PT'S DAUGHTER PAPA OVER TELEPHONE.
--- NOTE | 2021-04-29 23:40 | NUR ---
PT APPEARS TO BE SLEEPING COMFORTABLY, EYES CLOSED, SNORING GENTLY, RESPIRATIONS REGULAR AND UNLABORED. NSR 60'S ON MONITOR. SPO2 95% ON 02. CALL SENIOR WITHIN REACH.
[2021-04-30] VITALS (11 sets, daily range): BP systolic 89–188; BP diastolic 47–96
--- NOTE | 2021-04-30 00:05 | NUR ---
AT APPROXIMATELY @ 0005 PT APPEARS TO HAVE CONVERTED INTO AFIB WITH RATE OF 120S.
--- NOTE | 2021-04-30 00:30 | NUR ---
PT AWAKE, PLEASANT AND COOPERATIVE. ALERT TO SELF ONLY.
--- NOTE | 2021-04-30 00:40 | NUR ---
Mahsa PARISI ATTENDANT ARCADE IN ROOM TO DO EKG.
--- NOTE | 2021-04-30 00:55 | NUR ---
LOPRESSOR 5MG IV ADMINISTERED FOR SUSTAINED AFLUTTER 110s-140s. SEE E-MAR.
--- NOTE | 2021-04-30 01:13 | NUR ---
PT IN AND OUT OF SR 70s AND 80s AND AFLUTTER 110s T0 130s. PT APPEARS TO BE SLEEPING COMFORTABLY. NO APPARENT DISTRESS, RESPIRATIONS REGULAR AND UNLABORED. SPO2 100%.
--- NOTE | 2021-04-30 02:15 | NUR ---
PT AWAKE, REMAINS CONFUSED BUT PLEASANT AND COOPERATIVE. REPORTS SHE NEEDS TO USE BATHROOM. PT ASSISTED TO BATHROOM. PT VOIDS AND ASSISTED BACK TO BED.
--- NOTE | 2021-04-30 02:34 | NUR ---
JEFF SMITH @ [facility] 8Os.
--- NOTE | 2021-04-30 04:43 | NUR ---
PT CON'T TO SLEEP WITH NO APPARENT DISTRESS. ON MONITOR PT HAS CONVERTED TO AFLUTTER 130s.
--- NOTE | 2021-04-30 05:10 | NUR ---
PT CONVERTS BACK TO SR IN THE 80S.
--- NOTE | 2021-04-30 05:17 | NUR ---
PT UP TO BATHROOM WITH ASSISTANCE, VOIDS, ASSISTED BACK TO BED. PT AWAKE AND ALERT, COOPERATIVE AND PLEASANT.SITTING UP IN BED SIPPING WATER.
--- NOTE | 2021-04-30 05:34 | NUR ---
Zhen DINH AIR ANALYSIS ENGINEERING TECHNICIAN AT BEDSIDE COLLECTING LAB WORK.
[2021-04-30 06:26] LABS: HEMATOCRIT 41.3 % (37.0-47.0); IMMATURE GRANULOCYTES 0.6 % (0.0-5.0); MEAN CORPUSCULAR HGB 28.6 pG CALC (26.0-32.0); MEAN CORPUSCULAR HGB CONC 31.5 g/dL CAL (32.0-36.0); NEUT# 6.84 thou/uL (2.00-7.15); RED BLOOD COUNT 4.54 mill/uL (4.20-5.60); RED CELL DISTRI WIDTH 13.1 % (11.5-15.5)
[2021-04-30 06:47] LABS: ANION GAP 11 (6-22 (CALC)); BUN 8 mg/dL (8-23); BUN/CREATININE RATIO 17 (12-20 (CALC)); CARBON DIOXIDE 30 mmol/l (22-30); CHLORIDE 103 mmol/l (95-108); CREATININE 0.5 mg/dL (0.5-1.0); GFR > 60 ML/MIN (>=60 (CALC)); GFR FOR AFR.AMER. > 60 ML/MIN (>=60 (CALC)); POTASSIUM 3.4 mmol/l (3.5-5.1); SODIUM 140 mmol/l (137-146)
--- NOTE | 2021-04-30 07:30 | NUR ---
REPORT RECEIVED FROM MARIELA GONZALEZ. PT SITTING UP IN BED; ALERT AND ORIENTED X 3 WITH FREQUENT CONFUSION AND FORGETFULNESS; BED ALARM ON. UNABLE TO STATE AGE, BUT CAN TELL THE MONTH AND YEAR; STATES THAT SHE IS 36 YEARS OLD. DENIES PAIN. RESPIRATIONS EVEN AND UNLABORED ON ROOM AIR WITH OXYGEN TUBING UNDER CHIN; SPO2 95%; OXYGEN REAPPLIED AND SPO2 INCREASED TO 99%; NON PRODUCTIVE COUGH; LUNGS HAVE EXPIRATORY WHEEZING POSTERIORLY AND CLEAR ANTERIORLY. POC REVIEWED; SAFETY MEASURES IN PLACE; CALL LIGHT WITHIN REACH.
--- NOTE | 2021-04-30 08:26 | NUR ---
SITTING UP IN CHAIR FOR BREAKFAST AND ROCEPHIN INFUSING WITHOUT DIFFICULTY; #20 TO RFA APPEARS HEALTHY AND FLUSHES. PT NEEDS ENCOURAGEMENT TO GET OUT OF BED AND TAKE MEDICATIONS; SLIGHTLY AGITATED.
--- NOTE | 2021-04-30 08:38 | NUR ---
DR. DANG AT BEDSIDE.
--- NOTE | 2021-04-30 11:00 | NUR ---
AMBULATED TO BATHROOM WITH UNSTEADY GAIT; STAND BY ASSIST. CONTINUES TO SIT UP IN CHAIR. ROCEPHIN AND ZITHROMAX INFUSED WITHOUT DIFFICULTY. TALKING ON CELL PHONE TO DAUGHTER REQUESTING A COKE AND A HAMBURGER. NO OTHER REQUESTS OR CONCERNS AT THIS TIME.
--- NOTE | 2021-04-30 12:10 | NUR ---
RECIEVED REPORT FROM MARIELA OCHOA
--- NOTE | 2021-04-30 12:28 | NUR ---
TRANSFERRED TO [facility] ROOM 260 VIA WHEELCHAIR WITH OXYGEN IN STABLE CONDITION.
--- NOTE | 2021-04-30 12:30 | NUR ---
PT ARRIVED TO [facility] ROOM 260 VIA WHEELCHAIR IN STABLE CONDITION. PT AMBULATED TO CHAIR WITH STEADY GAIT. PT IS A/O X3 WITH SOME CONFUSION.PT SLIGHTLY AGITATED. VITALS OBTAINED. BP 164/80, HR 84, O2 93% ON 2L NC.HEART RHYTHM NORMAL WITH TELE IN PLACE, SR PER ER MONITORING. PT IS HOME DEPENDENT.#20G IN RW FLUSHED, SITE APPEARS HEALTHY AND PATENT.SKIN INTACT. PT ORIENTED TO ROOM AND CALL LIGHT SYSTEM. PT DENIES OF PAINS OR DISCOMFORTS AT THIS TIME. ALL SAFETY PRECAUTIONS ARE IN PLACE WITH CALL LIGHT IN REACH AND CHAIR ALARM ACTIVATE.. WILL CONTINUE TO MONITOR.
--- NOTE | 2021-04-30 13:28 | NUR ---
DAUGHTER CALLED FOR UPDATE. PASSCODE PROVIDED. UPDATE PROVIDED/
--- NOTE | 2021-04-30 14:09 | NUR ---
ATTEMPTED TO REASSESS BP AT THIS TIME. PT STATES "NO GET AWAY." NO DISTRESS NOTED AT THIS TIME. ALL SAFETY PRECAUTIONS ARE IN PLACE WITH CHAIR ALARM IN PLACE. WILL CONTINUE TO MONITOR.
--- NOTE | 2021-04-30 15:00 | NUR ---
REASSESSMENT OF BP REUSLTING IN 118/84, HR 89. PT REMAINS SITTING UP IN CHAIR. PT DENIES OF ANY NEEDS AT THIS TIME. ALL SAFETY PRECAUTIONS ARE IN PLACE. WILL CONTINUE TO MONITOR.
--- NOTE | 2021-04-30 16:00 | NUR ---
DAUGHTER AT BEDSIDE. PT REMAINS A/O WITH SOME CONFUSION SITTING UP IN CHAIR. PT EATING BURGER AND FRIES THAT DAUGHTER BROUGHT. #20G RW REMAINS IN PLACE. TELE MONITORING IN PLACE. PT DNEIES OF ANY PAINS OR DISCOMFORTS AT THIS TIME. ALL SAFETY PRECAUTIONS ARE IN PLACE WITH CHAIR ALARM IN PLACE. WILL CONTINUE TO MONITOR.
--- NOTE | 2021-04-30 19:52 | NUR ---
SCHEDULED MEDICATIONS AND PRN MEDICATION ADMINISTERED, SEE E-MAR. PT IS SITTING IN THE CHAIR WITH CHAIR ALARM ARMED. PT DENIES ANY NEEDS AT THIS TIME. PLAN OF CARE REVIEWED, PT DENIES QUESTIONS, VERBALIZES UNDERSTANDING. ITEMS WITHIN REACH, BED LOCKED IN LOW POSITION W/ BEDRAILS UP X2. CALL SENIOR WITHIN REACH, AGREES TO CALL PRN.
--- NOTE | 2021-04-30 21:00 | NUR ---
PHYSICAL ASSESMENT COMPLETE. PT CURRENTLY DENIES PAIN OR DISCOMFORT. SCHEDULED MEDICATIONS AND PRN MEDICATION ADMINISTERED, SEE E-MAR. PT DENIES ANY NEEDS AT THIS TIME. PLAN OF CARE REVIEWED, PT DENIES QUESTIONS, VERBALIZES UNDERSTANDING. ITEMS WITHIN REACH, BED LOCKED IN LOW POSITION W/ BEDRAILS UP X2. CALL SENIOR WITHIN REACH, AGREES TO CALL PRN.
[2021-05-01] VITALS: BP 175/72
--- NOTE | 2021-05-01 00:13 | NUR ---
PT LAYING IN BED WITH EYES CLOSED, APPEARS TO BE SLEEPING, APPEARS COMFORTABLE AND IN NO DISTRESS. RESPIRATIONS REGULAR AND UNLABORED. ITEMS REMAIN WITHIN REACH, CALL SENIOR REMAINS WITHIN REACH. BED REMAINS LOCKED AND IN LOW POSITION WITH BEDRAILS UP X2. WILL CONTINUE TO MONITOR.
[2021-05-01 04:00] VITALS: BP 145/72
--- NOTE | 2021-05-01 04:50 | NUR ---
PT RESTING IN BED, NO SIGNS OF DISTRESS NOTED, PT VOICES NO NEEDS OR COMPLAINTS AT THIS TIME. CALL LIGHT IN REACH, CONTINUE TO MONITOR.
[2021-05-01 06:07] LABS: HEMATOCRIT 40.7 % (37.0-47.0); HEMOGLOBIN 12.8 g/dl (12.0-16.0); IMMATURE GRANULOCYTES 0.6 % (0.0-5.0); MEAN CELL VOLUME 91.7 fL CALC (80.0-100.0); MEAN CORPUSCULAR HGB 28.8 pG CALC (26.0-32.0); MEAN CORPUSCULAR HGB CONC 31.4 g/dL CAL (32.0-36.0); NEUT# 5.73 thou/uL (2.00-7.15); RED BLOOD COUNT 4.44 mill/uL (4.20-5.60)
--- NOTE | 2021-05-01 06:25 | NUR ---
PT SEEMS CONFUSED. C O2 AT [facility], PT REFUSING TO WEAR AT THIS TIME. TOOK NEBULIZED BRINCHODILATOR THERAPY WELL. NAD. VSS. FORESTRY ADVISER TO MONITOR. RN AWARE,
--- NOTE | 2021-05-01 06:32 | NUR ---
PT PLACED BACK ON SUPPLEMENTAL O2 AT THIS TIME.
[2021-05-01 06:33] LABS: ANION GAP 12 (6-22 (CALC)); BUN 14 mg/dL (8-23); BUN/CREATININE RATIO 24 (12-20 (CALC)); CARBON DIOXIDE 32 mmol/l (22-30); CHLORIDE 101 mmol/l (95-108); CREATININE 0.6 mg/dL (0.5-1.0); GFR > 60 ML/MIN (>=60 (CALC)); GFR FOR AFR.AMER. > 60 ML/MIN (>=60 (CALC)); POTASSIUM 3.4 mmol/l (3.5-5.1); SODIUM 140 mmol/l (137-146)
--- NOTE | 2021-05-01 07:00 | NUR ---
RECIEVED REPORT FROM MARIELA ESCOBAR
[2021-05-01 07:30] VITALS: BP 172/92
--- NOTE | 2021-05-01 07:30 | NUR ---
PT SITTING UP ON SIDE OF BED. PT IS A/OX3 WITH CONFUSION. ASSESSMENT AND VITALS COMPLETED. BP 172/92, HR 94, O2 96% ON 2L NC. RESPIRATIONS ARE EVEN AND UNLABORED WITH NO DISRTESS NOTED. WHEEZING PRESENT UPON ALSCULTATION OF LUNGS. HEART RHYTHM NORMAL WITH TELE IN PLACE. BOWEL SOUNDS ARE ACTIVE. RADAIL AND PEDAL PULSES ARE STRONG. #20G RW FLUSHED, SITE APPEARS HEALTHY AND PATENT. SKIN INTACT. PT DENIES OF ANY PAINS OR DISCOMFORTS AT THIS TIME. ALL SAFETY PRECAUTIONS ARE IN PLACE WITH CALL LIGHT IN REACH AND BED ALARM ACTIVATED. WILL CONTINUE TO MONITOR.
--- NOTE | 2021-05-01 09:00 | NUR ---
DR DANG AT BEDSIDE
[2021-05-01] MEDS ORDERED: ELIQUIS2.5 MG PO (10:10)
[2021-05-01] MEDS ORDERED: ZITHROMAX250 MG PO (10:11)
[2021-05-01] MEDS ORDERED: PREDNISONE10 MG PO (10:11)
[2021-05-01 11:05] VITALS: BP 135/72
--- NOTE | 2021-05-01 12:08 | NUR ---
DC INSTRYUCTIONS CALLED TO [facility]. TRANSPORTATION TO ARRIVE TO 15 MIN.
--- NOTE | 2021-05-01 12:14 | NUR ---
PT EDUCATED ON DC INSTRUCTIONS AND NEW MEDICATIONS. PT VERBALIZED UNDERSTANDING. #20G IN RW REMOVED WITH CATHATER STILL INTACT. TELE MONITORING REMOVED, ER NOTIFIED. WAITUING FOR TRANSPORTATION.
--- NOTE | 2021-05-01 12:21 | NUR ---
Discharge instructions given. Patient verbalizes understanding of same. Discharged in stable condition via Wheelchair to Home with staff. All belongings sent with pt. PT DC HOME IN STABLE CONDITION ACCOMPAINED BY [facility] ST[facility] VIA WHE[facility]CHAIR WITH [facility]. PT DC WITH ALL DC INSTRUCTIONS AND BELONGINGS.
== END 2021-05-01 12:21 | DRG 194 ==
LOC: ED 09:14 → ED-I 12:11 → ED 12:20 → MS2 12:21 → ICU 12:21 → MS2 20:51 → ICU 04-29 05:09 → MS2 04-30 12:23
PROVIDERS: Emergency Medicine; Nurse Practitioner; ADMIT Internal Medicine; ATTEND Internal Medicine
DX: J18.9 Pneumonia, unspecified organism (principal); J44.0 Chronic obstructive pulmonary disease with (acute) lower respiratory infection; J44.1 Chronic obstructive pulmonary disease with (acute) exacerbation; J96.11 Chronic respiratory failure with hypoxia; I10 Essential (primary) hypertension; I25.10 Atherosclerotic heart disease of native coronary artery without angina pectoris; I48.91 Unspecified atrial fibrillation; F32.9 Major depressive disorder, single episode, unspecified; R45.1 Restlessness and agitation; Z95.1 Presence of aortocoronary bypass graft; Z87.891 Personal history of nicotine dependence; Z99.81 Dependence on supplemental oxygen; Z79.01 Long term (current) use of anticoagulants; Z20.822 Contact with and (suspected) exposure to COVID-19
CPT/HCPCS: G0378

== ENCOUNTER 2022-02-26 07:07 | Emergency (ER) | payer MEDICARE, MEDICAID ==
[~2022-02-26] VITALS: Ht 149.9 cm; Wt 42.0 kg
[~2022-02-26 07:07] MED LIST changes: +ASPIRIN81 MG PO; +BUPROPION HCL150 MG PO; +ELIQUIS2.5 MG PO; +FLOVENT HF220 MCG/AC; +ZITHROMAX250 MG PO
[2022-02-26 08:01] LABS: HEMATOCRIT 43.3 % (37.0-47.0); HEMOGLOBIN 13.4 g/dl (12.0-16.0); IMMATURE GRANULOCYTES 0.4 % (0.0-5.0); MEAN CELL VOLUME 93.3 fL CALC (80.0-100.0); MEAN CORPUSCULAR HGB 28.9 pG CALC (26.0-32.0); MEAN CORPUSCULAR HGB CONC 30.9 g/dL CAL (32.0-36.0); NEUT# 7.15 thou/uL (2.00-7.15); RED BLOOD COUNT 4.64 mill/uL (4.20-5.60); RED CELL DISTRI WIDTH 13.8 % (11.5-15.5)
[2022-02-26 08:28] LABS: ALBUMIN 4.2 g/dL (3.2-5.0); ALKALINE PHOSPHATASE 97 u/l (38-126); ANION GAP 10 (6-22 (CALC)); BILIRUBIN, TOTAL 0.6 mg/dL (0.0-1.4); BUN 18 mg/dL (8-23); BUN/CREATININE RATIO 26 (12-20 (CALC)); CARBON DIOXIDE 30 mmol/l (22-30); CHLORIDE 105 mmol/l (95-108); CREATININE 0.7 mg/dL (0.5-1.0); GFR > 60 ML/MIN (>=60 (CALC)); GFR FOR AFR.AMER. > 60 ML/MIN (>=60 (CALC)); POTASSIUM 3.8 mmol/l (3.5-5.1); SGOT/AST 28 u/l (9-36); SODIUM 142 mmol/l (137-146); TOTAL PROTEIN 7.7 g/dL (6.3-8.2)
[2022-02-26 09:10] VITALS: BP 164/67
[2022-02-26 09:30] VITALS: BP 156/63
[2022-02-26] MEDS ORDERED: ZOFRAN4 MG/TAB PO (10:18)
[2022-02-26] MEDS ORDERED: HYDROCO/APAP1 TA9 PO (10:18)
[2022-02-26 10:31] VITALS: BP 176/102
== END 2022-02-26 10:53 | disposition home or self-care (01) ==
LOC: ED 07:07
PROVIDERS: Internal Medicine
DX: S82.031A Displaced transverse fracture of right patella, initial encounter for closed fracture (principal); F32.A Depression, unspecified; I10 Essential (primary) hypertension; I48.91 Unspecified atrial fibrillation; J44.9 Chronic obstructive pulmonary disease, unspecified; W01.0XXA Fall on same level from slipping, tripping and stumbling without subsequent striking against object, initial encounter; Y92.009 Unspecified place in unspecified non-institutional (private) residence as the place of occurrence of the external cause; Z79.01 Long term (current) use of anticoagulants; Z95.1 Presence of aortocoronary bypass graft

== ENCOUNTER 2024-06-12 15:42 | Observation (INO) | payer MEDICARE, MEDICAID ==
[2024-06-12] VITALS (14 sets, daily range): BP systolic 90–176; BP diastolic 44–89
[~2024-06-12] VITALS: Ht 149.9 cm; Wt 43.2 kg
[~2024-06-12 15:42] MED LIST changes: +HYDROCO/APAP1 TA9 PO; +ZOFRAN4 MG/TAB PO
[2024-06-12] MEDS ORDERED: SODIUM CHLORIDE 0.9% 1,000 ML IV ONE (16:00)
[2024-06-12] MEDS ORDERED: methylPREDNISolone SODIUM SUCC 125 MG/2 ML SDV IV ONE (16:15)
[2024-06-12] MEDS ORDERED: IPRATROPIUM-Albuterol 0.5MG-2.5MG/3 ML NEB ONE (16:15)
[2024-06-12] MEDS ORDERED: ACETAMINOPHEN 325 MG/TAB PO ONE (16:25)
[2024-06-12 16:31] LABS: BASO% 0.3 % (0-3); HEMATOCRIT 45.3 % (37.0-47.0); HEMOGLOBIN 15.4 g/dl (12.0-16.0); IMMATURE GRANULOCYTES 0.1 % (0.0-5.0); LYMPH% 6.1 % (15-41); MEAN CELL VOLUME 86.9 fL CALC (80.0-100.0); MEAN CORPUSCULAR HGB 29.6 pG CALC (26.0-32.0); MONO% 5.3 % (2-13); NEUT# 10.5 thou/uL (2.00-7.15); NEUT% 88.2 % (42-76); RED BLOOD COUNT 5.21 mill/uL (4.20-5.60); RED CELL DISTRI WIDTH 12.4 % (11.5-15.5)
[2024-06-12 16:44] LABS: ALBUMIN 4.5 g/dL (3.2-5.0); CREATININE 0.7 mg/dL (0.5-1.0); POTASSIUM 3.8 mmol/l (3.5-5.1); TOTAL PROTEIN 9.2 g/dL (6.3-8.2)
[2024-06-12 16:53] LABS: BILIRUBIN, TOTAL 0.8 mg/dL (0.02-1.3)
[2024-06-12] MEDS ORDERED: LEVOTHYROXIN50 MCG PO (18:35)
[2024-06-12 18:39] LABS: URINE BLOOD DIPSTICK Small (NEGATIVE); URINE COLOR Yellow; URINE GLUCOSE - DIPSTICK Negative (NEGATIVE); URINE KETONE 40 mg/dL (NEGATIVE); URINE LEUK ESTERASE Negative (NEGATIVE); URINE NITRITE - DIPSTICK Negative (Negative); URINE PROTEIN - DIPSTICK >=300 mg/dL (NEG-TRACE); URINE SPECIFIC GRAVITY >=1.030; URINE UROBILINOGEN - DIPSTICK 0.2 E.U./dL (0.2)
[2024-06-12 18:46] LABS: URINE SQUAMOUS EPITHELIAL CELL FEW EPI/hpf (0-FEW)
[2024-06-12 18:48] LABS: URINE WBC 0-2 WBC/hpf (0-5)
[2024-06-12 18:49] LABS: URINE BACTERIA MODERATE hpf
[2024-06-12 18:51] LABS: URINE MUCUS FEW hpf (NONE-FEW)
[2024-06-12] MEDS ORDERED: AZITHROMYCIN 500 MG in SODIUM CHLORIDE 0.9% 250 ML IV ONE (19:00)
[2024-06-12] MEDS ORDERED: SODIUM CHLORIDE 0.9% 1,000 ML IV PRN (19:50)
[2024-06-12] MEDS ORDERED: ACETAMINOPHEN 325 MG/TAB PO PRN (19:50)
[2024-06-12] MEDS ORDERED: MAGNESIUM HYDROXIDE 30 ML UDC PO PRN (19:50)
[2024-06-12] MEDS ORDERED: IPRATROPIUM-Albuterol 0.5MG-2.5MG/3 ML NEB PRN (19:55)
[2024-06-12] MEDS ORDERED: FLECAINIDE ACETATE 50 MG TAB PO SCH (21:00)
[2024-06-12] MEDS ORDERED: FLUTICASONE/SALMETEROL 250 MCG/50 MCG PER DOSE INH IN SCH (21:00)
[2024-06-12] MEDS ORDERED: METOPROLOL TARTRATE 50 MG/TAB PO SCH (21:00)
[2024-06-12] MEDS ORDERED: APIXABAN BASE 2.5 MG/TAB TAB PO SCH (21:00)
[2024-06-12] MEDS ORDERED: MONTELUKAST SODIUM 10 MG/TAB PO SCH (21:00)
[2024-06-13] VITALS (10 sets, daily range): BP systolic 124–160; BP diastolic 47–74
[2024-06-13 04:52] LABS: BASO% 0.4 % (0-3); HEMATOCRIT 43.9 % (37.0-47.0); HEMOGLOBIN 14.5 g/dl (12.0-16.0); IMMATURE GRANULOCYTES 0.2 % (0.0-5.0); LYMPH% 9.4 % (15-41); MEAN CELL VOLUME 88.2 fL CALC (80.0-100.0); MEAN CORPUSCULAR HGB 29.1 pG CALC (26.0-32.0); MONO% 1.1 % (2-13); NEUT# 4.18 thou/uL (2.00-7.15); NEUT% 88.9 % (42-76); RED BLOOD COUNT 4.98 mill/uL (4.20-5.60); RED CELL DISTRI WIDTH 12.5 % (11.5-15.5)
[2024-06-13 05:24] LABS: ALBUMIN 3.6 g/dL (3.2-5.0); BILIRUBIN, TOTAL 0.6 mg/dL (0.02-1.3); CHOLESTEROL HDL RATIO 2.6 (<4.4 (CALC)); CREATININE 0.6 mg/dL (0.5-1.0); POTASSIUM 3.7 mmol/l (3.5-5.1)
[2024-06-13 05:26] LABS: TOTAL PROTEIN 7.2 g/dL (6.3-8.2)
[2024-06-13] MEDS ORDERED: LEVOTHYROXINE SODIUM 50 MCG/TAB PO SCH (06:00)
[2024-06-13] MEDS ORDERED: TIOTROPIUM BROMIDE MONOHYDRATE 2.5 MCG/ACT 4 GM INH IN SCH (09:00)
[2024-06-13] MEDS ORDERED: amLODIPine BESYLATE 5 MG/TAB PO SCH (09:00)
[2024-06-13] MEDS ORDERED: methylPREDNISolone Sod Succ 40 MG/ML SDV IV SCH (09:00)
[2024-06-13] MEDS ORDERED: cefTRIAXone SODIUM 2 GM in SODIUM CHLORIDE 0.9% 100 ML IV SCH (17:00)
[2024-06-13] MEDS ORDERED: AZITHROMYCIN 500 MG in SODIUM CHLORIDE 0.9% 250 ML IV SCH (19:00)
[2024-06-14] VITALS (8 sets, daily range): BP systolic 136–177; BP diastolic 52–71
[2024-06-14 04:51] LABS: BASO% 0.1 % (0-3); HEMATOCRIT 40.8 % (37.0-47.0); HEMOGLOBIN 13.4 g/dl (12.0-16.0); IMMATURE GRANULOCYTES 0.2 % (0.0-5.0); LYMPH% 5.6 % (15-41); MEAN CELL VOLUME 88.9 fL CALC (80.0-100.0); MEAN CORPUSCULAR HGB 29.2 pG CALC (26.0-32.0); MEAN CORPUSCULAR HGB CONC 32.8 g/dL CAL (32.0-36.0); MONO% 2.5 % (2-13); NEUT# 8.92 thou/uL (2.00-7.15); NEUT% 91.6 % (42-76); RED BLOOD COUNT 4.59 mill/uL (4.20-5.60); RED CELL DISTRI WIDTH 12.8 % (11.5-15.5)
[2024-06-14 05:11] LABS: ALBUMIN 3.8 g/dL (3.2-5.0); BILIRUBIN, TOTAL 0.4 mg/dL (0.02-1.3); CREATININE 0.6 mg/dL (0.5-1.0); MAGNESIUM 2.1 mg/dL (1.6-2.3); POTASSIUM 3.5 mmol/l (3.5-5.1); TOTAL PROTEIN 7.3 g/dL (6.3-8.2)
[2024-06-14] MEDS ORDERED: FUROSEMIDE 40 MG/4 ML SDV IV SCH (11:00)
[2024-06-14] MEDS ORDERED: LOSARTAN Potassium 50 MG/TAB PO SCH (11:00)
[2024-06-15] VITALS (9 sets, daily range): BP systolic 98–156; BP diastolic 43–74
[2024-06-15 05:38] LABS: BASO% 0.1 % (0-3); HEMATOCRIT 40.4 % (37.0-47.0); HEMOGLOBIN 13.5 g/dl (12.0-16.0); IMMATURE GRANULOCYTES 0.5 % (0.0-5.0); LYMPH% 17.9 % (15-41); MEAN CELL VOLUME 89.4 fL CALC (80.0-100.0); MEAN CORPUSCULAR HGB 29.9 pG CALC (26.0-32.0); MEAN CORPUSCULAR HGB CONC 33.4 g/dL CAL (32.0-36.0); MONO% 3.3 % (2-13); NEUT# 5.92 thou/uL (2.00-7.15); NEUT% 78.2 % (42-76); RED BLOOD COUNT 4.52 mill/uL (4.20-5.60)
[2024-06-15 05:43] LABS: ALBUMIN 3.7 g/dL (3.2-5.0); BILIRUBIN, TOTAL 0.3 mg/dL (0.02-1.3); CREATININE 0.7 mg/dL (0.5-1.0); MAGNESIUM 2.1 mg/dL (1.6-2.3); POTASSIUM 3.4 mmol/l (3.5-5.1)
[2024-06-15] MEDS ORDERED: FUROSEMIDE 40 MG/4 ML SDV IV SCH (11:30)
[2024-06-16 04:25] VITALS: BP 144/70
[2024-06-16 05:09] VITALS: BP 144/70
[2024-06-16 05:11] LABS: BASO% 0.2 % (0-3); HEMATOCRIT 37.1 % (37.0-47.0); IMMATURE GRANULOCYTES 1.7 % (0.0-5.0); LYMPH% 20.6 % (15-41); MEAN CELL VOLUME 91.8 fL CALC (80.0-100.0); MEAN CORPUSCULAR HGB 29.7 pG CALC (26.0-32.0); MEAN CORPUSCULAR HGB CONC 32.3 g/dL CAL (32.0-36.0); MONO% 4.4 % (2-13); NEUT# 3.79 thou/uL (2.00-7.15); NEUT% 73.1 % (42-76); RED BLOOD COUNT 4.04 mill/uL (4.20-5.60); RED CELL DISTRI WIDTH 12.9 % (11.5-15.5)
[2024-06-16 05:23] LABS: ALBUMIN 3.3 g/dL (3.2-5.0); CREATININE 0.8 mg/dL (0.5-1.0); MAGNESIUM 2.2 mg/dL (1.6-2.3); POTASSIUM 3.8 mmol/l (3.5-5.1); TOTAL PROTEIN 6.3 g/dL (6.3-8.2)
[2024-06-16 05:41] LABS: BILIRUBIN, TOTAL 0.1 mg/dL (0.02-1.3)
[2024-06-16 07:17] VITALS: BP 151/51
[2024-06-16] MEDS ORDERED: LASIX20 MG PO (10:45)
[2024-06-16] MEDS ORDERED: LOSARTAN POTASS50 MG PO (11:26)
[2024-06-16 11:30] VITALS: BP 134/68
[2024-06-16] MEDS ORDERED: KEFLEX500 MG PO (11:41)
[2024-06-16] MEDS ORDERED: PREDNISONE10 MG PO (14:59)
== END 2024-06-16 14:35 ==
LOC: ED 15:42 → ED-I 19:00 → ED 19:15 → MS2 19:16
PROVIDERS: Nurse Practitioner; Nurse Practitioner Family; ADMIT Student in an Organized Health Care Education/Training Program; ATTEND Student in an Organized Health Care Education/Training Program
DX: J18.9 Pneumonia, unspecified organism (principal); J44.0 Chronic obstructive pulmonary disease with (acute) lower respiratory infection; J44.1 Chronic obstructive pulmonary disease with (acute) exacerbation; N39.0 Urinary tract infection, site not specified; B96.20 Unspecified Escherichia coli [E. coli] as the cause of diseases classified elsewhere; J96.11 Chronic respiratory failure with hypoxia; I11.0 Hypertensive heart disease with heart failure; I50.33 Acute on chronic diastolic (congestive) heart failure; I48.19 Other persistent atrial fibrillation; I25.10 Atherosclerotic heart disease of native coronary artery without angina pectoris; E03.9 Hypothyroidism, unspecified; I25.2 Old myocardial infarction; Z99.81 Dependence on supplemental oxygen; Z87.891 Personal history of nicotine dependence; Z79.01 Long term (current) use of anticoagulants; Z95.1 Presence of aortocoronary bypass graft; Z20.822 Contact with and (suspected) exposure to COVID-19

== ENCOUNTER → 2024-07-07 | Emergency (ER) | payer MEDICARE, MEDICAID ==
[2024-07-07] VITALS (14 sets, daily range): BP systolic 115–164; BP diastolic 46–57
[~2024-07-07] VITALS: Ht 149.9 cm; Wt 42.0 kg
[~2024-07-07] MED LIST changes: +FUROSEMIDE 40 MG/4 ML SDV IV ONE; +IPRATROPIUM-Albuterol 0.5MG-2.5MG/3 ML NEB ONE; +KEFLEX500 MG PO; +LASIX20 MG PO; +LEVOTHYROXIN50 MCG PO; +LOSARTAN POTASS50 MG PO; +methylPREDNISolone SODIUM SUCC 125 MG/2 ML SDV IV ONE
[2024-07-07 02:16] LABS: BASO% 0.5 % (0-3); EOS% 1.7 % (0-8); HEMATOCRIT 39.2 % (37.0-47.0); HEMOGLOBIN 12.1 g/dl (12.0-16.0); IMMATURE GRANULOCYTES 0.6 % (0.0-5.0); LYMPH% 17.2 % (15-41); MEAN CELL VOLUME 93.1 fL CALC (80.0-100.0); MEAN CORPUSCULAR HGB 28.7 pG CALC (26.0-32.0); MEAN CORPUSCULAR HGB CONC 30.9 g/dL CAL (32.0-36.0); MONO% 6.2 % (2-13); NEUT# 5.74 thou/uL (2.00-7.15); NEUT% 73.8 % (42-76); RED BLOOD COUNT 4.21 mill/uL (4.20-5.60); RED CELL DISTRI WIDTH 13.8 % (11.5-15.5)
[2024-07-07 02:36] LABS: ANION GAP 7 (6-22 (CALC)); BUN 27 mg/dL (8-23); BUN/CREATININE RATIO 31 (12-20 (CALC)); CARBON DIOXIDE 31 mmol/l (22-30); CHLORIDE 107 mmol/l (95-108); CREATININE 0.9 mg/dL (0.5-1.0); ESTIMATED GFR 63 ML/MIN (>=90 (CALC)); POTASSIUM 3.8 mmol/l (3.5-5.1); SODIUM 142 mmol/l (137-146); TOTAL PROTEIN 7.5 g/dL (6.3-8.2)
[2024-07-07 02:37] LABS: ALBUMIN 4.2 g/dL (3.2-5.0); ALKALINE PHOSPHATASE 125 u/l (38-126); BILIRUBIN, TOTAL 0.5 mg/dL (0.02-1.3); SGOT/AST 56 u/l (9-36)
== END | disposition short-term general hospital (02) ==
LOC: ED 00:29
PROVIDERS: Family Medicine
DX: R00.1 Bradycardia, unspecified (principal); I48.91 Unspecified atrial fibrillation; I10 Essential (primary) hypertension; J44.9 Chronic obstructive pulmonary disease, unspecified; Z95.1 Presence of aortocoronary bypass graft; Z20.822 Contact with and (suspected) exposure to COVID-19

== ENCOUNTER 2024-11-27 12:04 | Inpatient (IN) | payer MEDICARE, MEDICAID ==
[~2024-11-27] VITALS: Ht 121.9 cm; Wt 42.6 kg
[2024-11-27] VITALS (18 sets, daily range): BP systolic 105–211; BP diastolic 48–117
[~2024-11-27 12:04] MED LIST changes: -FUROSEMIDE 40 MG/4 ML SDV IV ONE; -IPRATROPIUM-Albuterol 0.5MG-2.5MG/3 ML NEB ONE; +MEDDOSEPAK PO; +VIBRAMYCIN100 M2 PO; -methylPREDNISolone SODIUM SUCC 125 MG/2 ML SDV IV ONE
[2024-11-27] MEDS ORDERED: IPRATROPIUM-Albuterol 0.5MG-2.5MG/3 ML NEB ONE ×2 (12:15)
[2024-11-27] MEDS ORDERED: AZITHROMYCIN 500 MG in SODIUM CHLORIDE 0.9% 500 ML IV ONE (12:15)
[2024-11-27] MEDS ORDERED: cefTRIAXone SODIUM 2 GM in SODIUM CHLORIDE 0.9% 100 ML IV ONE (12:15)
[2024-11-27] MEDS ORDERED: hydrALAZINE HCL 20 MG/ML VIAL(1 ML) IV ONE (12:20)
[2024-11-27 12:52] LABS: BASO% 0.5 % (0-3); EOS% 0.2 % (0-8); HEMATOCRIT 43.5 % (37.0-47.0); HEMOGLOBIN 12.8 g/dl (12.0-16.0); IMMATURE GRANULOCYTES 1.1 % (0.0-5.0); LYMPH% 6.8 % (15-41); MEAN CELL VOLUME 94.4 fL CALC (80.0-100.0); MEAN CORPUSCULAR HGB 27.8 pG CALC (26.0-32.0); MEAN CORPUSCULAR HGB CONC 29.4 g/dL CAL (32.0-36.0); MONO% 4.4 % (2-13); NEUT# 9.26 thou/uL (2.00-7.15); RED BLOOD COUNT 4.61 mill/uL (4.20-5.60); RED CELL DISTRI WIDTH 15.3 % (11.5-15.5)
[2024-11-27 13:15] LABS: ALBUMIN 4.4 g/dL (3.2-5.0); BILIRUBIN, TOTAL 1.2 mg/dL (0.02-1.3); CREATININE 0.8 mg/dL (0.5-1.0); POTASSIUM 3.7 mmol/l (3.5-5.1); TOTAL PROTEIN 8.1 g/dL (6.3-8.2)
[2024-11-27] MEDS ORDERED: FUROSEMIDE 40 MG/4 ML SDV IV ONE ×2 (13:35)
[2024-11-27] MEDS ORDERED: ONDANSETRON HCl 4 MG/2 ML SDV IV ONE (13:35)
[2024-11-27] MEDS ORDERED: MAGNESIUM HYDROXIDE 30 ML UDC PO PRN (15:25)
[2024-11-27] MEDS ORDERED: ACETAMINOPHEN 325 MG/TAB PO PRN (15:25)
[2024-11-27] MEDS ORDERED: IPRATROPIUM-Albuterol 0.5MG-2.5MG/3 ML NEB SCH (19:00)
[2024-11-27] MEDS ORDERED: FUROSEMIDE 40 MG/4 ML SDV IV SCH (20:00)
[2024-11-27] MEDS ORDERED: APIXABAN BASE 2.5 MG/TAB TAB PO SCH (21:00)
[2024-11-27] MEDS ORDERED: METOPROLOL TARTRATE 50 MG/TAB PO SCH (21:00)
[2024-11-27] MEDS ORDERED: ENOXAPARIN SODIUM 40 MG/0.4 ML SYR SC SCH (21:00)
[2024-11-28 01:03] VITALS: BP 156/64
[2024-11-28 04:58] LABS: BASO% 0.3 % (0-3); HEMATOCRIT 37.7 % (37.0-47.0); HEMOGLOBIN 10.9 g/dl (12.0-16.0); LYMPH% 6.1 % (15-41); MEAN CELL VOLUME 95.7 fL CALC (80.0-100.0); MEAN CORPUSCULAR HGB 27.7 pG CALC (26.0-32.0); MEAN CORPUSCULAR HGB CONC 28.9 g/dL CAL (32.0-36.0); MONO% 2.5 % (2-13); NEUT# 6.37 thou/uL (2.00-7.15); NEUT% 90.1 % (42-76); RED BLOOD COUNT 3.94 mill/uL (4.20-5.60); RED CELL DISTRI WIDTH 15.7 % (11.5-15.5)
[2024-11-28 05:09] VITALS: BP 142/59
[2024-11-28 05:34] LABS: ALBUMIN 3.7 g/dL (3.2-5.0); CREATININE 0.9 mg/dL (0.5-1.0); MAGNESIUM 2.2 mg/dL (1.6-2.3); POTASSIUM 3.3 mmol/l (3.5-5.1); TOTAL PROTEIN 6.7 g/dL (6.3-8.2)
[2024-11-28 05:35] LABS: BILIRUBIN, TOTAL 0.5 mg/dL (0.02-1.3)
[2024-11-28] MEDS ORDERED: LEVOTHYROXINE SODIUM 50 MCG/TAB PO SCH (06:00)
[2024-11-28 06:40] VITALS: BP 138/56
[2024-11-28] MEDS ORDERED: LOSARTAN Potassium 50 MG/TAB PO SCH (09:00)
[2024-11-28 10:30] VITALS: BP 148/49
[2024-11-28] MEDS ORDERED: AZITHROMYCIN 500 MG in DEXTROSE 5% 250 ML IV SCH (13:00)
[2024-11-28 15:27] VITALS: BP 112/53
[2024-11-28 18:10] VITALS: BP 122/43
[2024-11-29 00:25] VITALS: BP 130/54
[2024-11-29 04:30] VITALS: BP 132/69
[2024-11-29 05:42] LABS: BASO% 0.3 % (0-3); EOS% 0.2 % (0-8); HEMATOCRIT 36.7 % (37.0-47.0); HEMOGLOBIN 10.9 g/dl (12.0-16.0); IMMATURE GRANULOCYTES 0.3 % (0.0-5.0); LYMPH% 8.2 % (15-41); MEAN CELL VOLUME 94.3 fL CALC (80.0-100.0); MEAN CORPUSCULAR HGB CONC 29.7 g/dL CAL (32.0-36.0); MONO% 8.3 % (2-13); NEUT# 9.33 thou/uL (2.00-7.15); NEUT% 82.7 % (42-76); RED BLOOD COUNT 3.89 mill/uL (4.20-5.60); RED CELL DISTRI WIDTH 15.7 % (11.5-15.5)
[2024-11-29 05:59] LABS: ALBUMIN 3.6 g/dL (3.2-5.0); BILIRUBIN, TOTAL 0.3 mg/dL (0.02-1.3); CREATININE 1.7 mg/dL (0.5-1.0); MAGNESIUM 2.7 mg/dL (1.6-2.3); POTASSIUM 3.8 mmol/l (3.5-5.1); TOTAL PROTEIN 6.4 g/dL (6.3-8.2)
[2024-11-29 07:15] VITALS: BP 122/52
[2024-11-29 12:42] VITALS: BP 93/46
[2024-11-29 16:57] VITALS: BP 185/58
[2024-11-29 18:30] VITALS: BP 125/63
[2024-11-30] VITALS (255 sets, daily range): BP systolic 121–177; BP diastolic 50–102
[2024-11-30 05:10] LABS: ALBUMIN 3.7 g/dL (3.2-5.0); BASO% 0.7 % (0-3); BILIRUBIN, TOTAL 0.4 mg/dL (0.02-1.3); EOS% 1.4 % (0-8); HEMATOCRIT 38.8 % (37.0-47.0); HEMOGLOBIN 11.8 g/dl (12.0-16.0); IMMATURE GRANULOCYTES 0.2 % (0.0-5.0); LYMPH% 14.8 % (15-41); MAGNESIUM 2.9 mg/dL (1.6-2.3); MEAN CELL VOLUME 94.2 fL CALC (80.0-100.0); MEAN CORPUSCULAR HGB 28.6 pG CALC (26.0-32.0); MEAN CORPUSCULAR HGB CONC 30.4 g/dL CAL (32.0-36.0); MONO% 8.7 % (2-13); NEUT# 7.98 thou/uL (2.00-7.15); NEUT% 74.2 % (42-76); POTASSIUM 3.9 mmol/l (3.5-5.1); RED BLOOD COUNT 4.12 mill/uL (4.20-5.60); RED CELL DISTRI WIDTH 15.4 % (11.5-15.5); TOTAL PROTEIN 6.6 g/dL (6.3-8.2)
[2024-11-30] MEDS ORDERED: ROCURONIUM BROMIDE 10 MG/ML 5ML VIAL IV ONE (08:27)
[2024-11-30] MEDS ORDERED: SUCCINYLCHOLINE CHLORIDE 20 MG/ML 10ML VIAL IV ONE (08:27)
[2024-11-30] MEDS ORDERED: ETOMIDATE 20 MG/10 ML SDV IV ONE (08:27)
[2024-11-30] MEDS ORDERED: FUROSEMIDE 40 MG/4 ML SDV IV SCH (09:00)
[2024-11-30] MEDS ORDERED: IPRATROPIUM-Albuterol 0.5MG-2.5MG/3 ML NEB PRN (12:43)
[2024-11-30] MEDS ORDERED: AZITHROMYCIN 500 MG in SODIUM CHLORIDE 0.9% 250 ML IV SCH (13:00)
[2024-11-30] MEDS ORDERED: PROPOFOL 100 ML IV ONE (14:27)
[2024-11-30] MEDS ORDERED: SODIUM CHLORIDE 0.9% 1,000 ML IV ONE (15:01)
[2024-11-30 15:26] LABS: BASO% 0.4 % (0-3); EOS% 1.5 % (0-8); HEMATOCRIT 36.2 % (37.0-47.0); HEMOGLOBIN 10.8 g/dl (12.0-16.0); IMMATURE GRANULOCYTES 0.4 % (0.0-5.0); LYMPH% 15.3 % (15-41); MEAN CELL VOLUME 93.3 fL CALC (80.0-100.0); MEAN CORPUSCULAR HGB 27.8 pG CALC (26.0-32.0); MEAN CORPUSCULAR HGB CONC 29.8 g/dL CAL (32.0-36.0); NEUT# 5.56 thou/uL (2.00-7.15); NEUT% 75.4 % (42-76); RED BLOOD COUNT 3.88 mill/uL (4.20-5.60); RED CELL DISTRI WIDTH 15.5 % (11.5-15.5)
[2024-11-30 15:35] LABS: ALBUMIN 3.3 g/dL (3.2-5.0); BILIRUBIN, TOTAL 0.4 mg/dL (0.02-1.3); CREATININE 1.8 mg/dL (0.5-1.0); MAGNESIUM 3.4 mg/dL (1.6-2.3); POTASSIUM 4.2 mmol/l (3.5-5.1); TOTAL PROTEIN 5.9 g/dL (6.3-8.2)
[2024-11-30] MEDS ORDERED: NOREPINEPHRINE BITARTRATE 4 MG in DEXTROSE 5% 250 ML IV SCH (16:00)
[2024-11-30] MEDS ORDERED: SODIUM CHLORIDE 0.9% 1,000 ML IV PRN (16:40)
[2024-11-30] MEDS ORDERED: PROPOFOL 100 ML IV PRN (16:40)
[2024-12-01] VITALS (28 sets, daily range): BP systolic 102–149; BP diastolic 41–96
[2024-12-01] MEDS ORDERED: SODIUM CHLORIDE 0.9% 10 ML SYR IV PRN (03:10)
[2024-12-01 05:19] LABS: BASO% 0.3 % (0-3); EOS% 0.8 % (0-8); HEMATOCRIT 35.4 % (37.0-47.0); IMMATURE GRANULOCYTES 0.8 % (0.0-5.0); LYMPH% 3.7 % (15-41); MEAN CELL VOLUME 88.7 fL CALC (80.0-100.0); MEAN CORPUSCULAR HGB 27.6 pG CALC (26.0-32.0); MEAN CORPUSCULAR HGB CONC 31.1 g/dL CAL (32.0-36.0); MONO% 5.9 % (2-13); NEUT# 12.58 thou/uL (2.00-7.15); NEUT% 88.5 % (42-76); RED BLOOD COUNT 3.99 mill/uL (4.20-5.60); RED CELL DISTRI WIDTH 15.9 % (11.5-15.5)
[2024-12-01 05:36] LABS: ALBUMIN 2.9 g/dL (3.2-5.0); CREATININE 1.5 mg/dL (0.5-1.0); MAGNESIUM 2.7 mg/dL (1.6-2.3); POTASSIUM 3.6 mmol/l (3.5-5.1); TOTAL PROTEIN 5.4 g/dL (6.3-8.2)
[2024-12-01 05:44] LABS: BILIRUBIN, TOTAL 0.6 mg/dL (0.02-1.3)
[2024-12-01] MEDS ORDERED: SODIUM CHLORIDE 0.9% 10 ML SYR IV SCH (06:00)
[2024-12-02] VITALS (48 sets, daily range): BP systolic 87–183; BP diastolic 42–137
[2024-12-02 05:33] LABS: BASO% 0.4 % (0-3); EOS% 1.6 % (0-8); HEMATOCRIT 33.1 % (37.0-47.0); HEMOGLOBIN 10.5 g/dl (12.0-16.0); IMMATURE GRANULOCYTES 0.1 % (0.0-5.0); LYMPH% 5.7 % (15-41); MEAN CORPUSCULAR HGB 28.2 pG CALC (26.0-32.0); MEAN CORPUSCULAR HGB CONC 31.7 g/dL CAL (32.0-36.0); MONO% 8.4 % (2-13); NEUT# 11.81 thou/uL (2.00-7.15); NEUT% 83.8 % (42-76); RED BLOOD COUNT 3.72 mill/uL (4.20-5.60); RED CELL DISTRI WIDTH 16.4 % (11.5-15.5)
[2024-12-02 05:44] LABS: ALBUMIN 2.7 g/dL (3.2-5.0); BILIRUBIN, TOTAL 0.6 mg/dL (0.02-1.3); CREATININE 1.3 mg/dL (0.5-1.0); POTASSIUM 3.3 mmol/l (3.5-5.1); TOTAL PROTEIN 5.1 g/dL (6.3-8.2)
[2024-12-02] MEDS ORDERED: POTASSIUM CHLORIDE 20MEQ 100 ML IV SCH (09:30)
[2024-12-02] MEDS ORDERED: SODIUM CHLORIDE 0.9% 1,000 ML IV PRN (19:00)
[2024-12-02 19:11] LABS: CREATININE 1.3 mg/dL (0.5-1.0); POTASSIUM 3.9 mmol/l (3.5-5.1)
[2024-12-03] VITALS (54 sets, daily range): BP systolic 82–192; BP diastolic 31–104
[2024-12-03 05:49] LABS: BASO% 0.2 % (0-3); IMMATURE GRANULOCYTES 0.5 % (0.0-5.0); LYMPH% 3.9 % (15-41); MEAN CELL VOLUME 91.8 fL CALC (80.0-100.0); MEAN CORPUSCULAR HGB 27.9 pG CALC (26.0-32.0); MEAN CORPUSCULAR HGB CONC 30.4 g/dL CAL (32.0-36.0); MONO% 6.8 % (2-13); NEUT# 18.36 thou/uL (2.00-7.15); NEUT% 88.6 % (42-76); RED BLOOD COUNT 4.52 mill/uL (4.20-5.60); RED CELL DISTRI WIDTH 16.1 % (11.5-15.5)
[2024-12-03 05:56] LABS: HEMATOCRIT 41.5 % (37.0-47.0); HEMOGLOBIN 12.6 g/dl (12.0-16.0)
[2024-12-03 05:59] LABS: ALBUMIN 2.9 g/dL (3.2-5.0); BILIRUBIN, TOTAL 0.7 mg/dL (0.02-1.3); CREATININE 1.1 mg/dL (0.5-1.0); POTASSIUM 4.3 mmol/l (3.5-5.1); TOTAL PROTEIN 5.7 g/dL (6.3-8.2)
[2024-12-03] MEDS ORDERED: BENZOCAINE-MENTHOL (MOUTH-THRO 1 LOZ LOZ PO PRN (08:50)
[2024-12-03] MEDS ORDERED: CALCIUM CHLORIDE 10% 100 MG/ML 10ML SYR IV ONE (10:21)
[2024-12-03] MEDS ORDERED: MAGNESIUM SULFATE 50% 1 GM/2 ML IV ONE (10:21)
[2024-12-03] MEDS ORDERED: SODIUM BICARBONATE 8.4% 50 ML/SYR IV ONE (10:21)
[2024-12-03] MEDS ORDERED: DEXTROSE 5% 250 ML BAG IV ONE (10:21)
[2024-12-03] MEDS ORDERED: NOREPINEPHRINE BITARTRATE 4 MG/VIAL SDV IV ONE (10:21)
[2024-12-03] MEDS ORDERED: EPINEPHrine HCL 0.1 MG/ML 10 ML SYR IV ONE (10:21)
[2024-12-03] MEDS ORDERED: ALPRAZolam 0.25 MG PO PRN (11:40)
[2024-12-03] MEDS ORDERED: PROPOFOL 100 ML IV ONE (15:48)
[2024-12-03 16:18] LABS: BASO% 0.1 % (0-3); HEMATOCRIT 44.8 % (37.0-47.0); HEMOGLOBIN 12.5 g/dl (12.0-16.0); IMMATURE GRANULOCYTES 1.5 % (0.0-5.0); LYMPH% 7.8 % (15-41); MEAN CORPUSCULAR HGB 27.2 pG CALC (26.0-32.0); MEAN CORPUSCULAR HGB CONC 27.9 g/dL CAL (32.0-36.0); NEUT# 17.34 thou/uL (2.00-7.15); NEUT% 86.6 % (42-76); RED BLOOD COUNT 4.6 mill/uL (4.20-5.60); RED CELL DISTRI WIDTH 16.5 % (11.5-15.5)
[2024-12-03 16:19] LABS: MEAN CELL VOLUME 97.4 fL CALC (80.0-100.0)
[2024-12-03 16:25] LABS: ALBUMIN 2.5 g/dL (3.2-5.0); BILIRUBIN, TOTAL 0.7 mg/dL (0.02-1.3); CREATININE 1.5 mg/dL (0.5-1.0); POTASSIUM 3.9 mmol/l (3.5-5.1)
[2024-12-03 16:38] LABS: MAGNESIUM 11.6 mg/dL (1.6-2.3)
[2024-12-03] MEDS ORDERED: NOREPINEPHRINE BITARTRATE 4 MG in DEXTROSE 5% 250 ML IV PRN (16:55)
[2024-12-03] MEDS ORDERED: PROPOFOL 100 ML IV PRN (17:10)
[2024-12-03] MEDS ORDERED: SODIUM CHLORIDE 0.9% 1,000 ML IV PRN (17:15)
[2024-12-03] MEDS ORDERED: LORazepam 2 MG/ML IV PRN (18:50)
== END 2024-12-03 22:35 | disposition expired | DRG 208 ==
LOC: ED 12:04 → ED-I 13:40 → ED 13:54 → MS2 13:55 → ICU 11-30 14:33
PROVIDERS: Family Medicine; Internal Medicine; Nurse Practitioner Family; ADMIT Internal Medicine; ATTEND Internal Medicine
PROC: 0BH17EZ Insertion of Endotracheal Airway into Trachea, Via Natural or Artificial Opening (ICD-10-PCS; principal; 2024-11-30)
PROC: 5A12012 Performance of Cardiac Output, Single, Manual (ICD-10-PCS; 2024-11-30)
PROC: 02HV33Z Insertion of Infusion Device into Superior Vena Cava, Percutaneous Approach (ICD-10-PCS; 2024-11-30)
PROC: 5A1945Z Respiratory Ventilation, 24-96 Consecutive Hours (ICD-10-PCS; 2024-11-30)
PROC: 5A1935Z Respiratory Ventilation, Less than 24 Consecutive Hours (ICD-10-PCS; 2024-12-03)
PROC: 0BH17EZ Insertion of Endotracheal Airway into Trachea, Via Natural or Artificial Opening (ICD-10-PCS; 2024-12-03)
PROC: 5A12012 Performance of Cardiac Output, Single, Manual (ICD-10-PCS; 2024-12-03)
DX: J18.9 Pneumonia, unspecified organism (principal); J96.21 Acute and chronic respiratory failure with hypoxia; I48.19 Other persistent atrial fibrillation; J44.0 Chronic obstructive pulmonary disease with (acute) lower respiratory infection; N17.9 Acute kidney failure, unspecified; I11.0 Hypertensive heart disease with heart failure; I50.9 Heart failure, unspecified; I46.9 Cardiac arrest, cause unspecified; I25.10 Atherosclerotic heart disease of native coronary artery without angina pectoris; E03.9 Hypothyroidism, unspecified; I25.2 Old myocardial infarction; Z95.1 Presence of aortocoronary bypass graft; Z95.0 Presence of cardiac pacemaker; Z99.81 Dependence on supplemental oxygen; Z87.01 Personal history of pneumonia (recurrent); Z20.822 Contact with and (suspected) exposure to COVID-19
CPT/HCPCS: J0360; J0456; J0696; J1940; J2060; J2405; J2704; J3480